=== PATIENT | female | born 1965 | race African-American/Black ===

== ENCOUNTER → 2017-02-22 | Outpatient (CLI) | payer OTHER ==
[~2017-02-22] MED LIST: ACCOLATE20 MG PO; CORT; HYDRALAZINE HCL25 MG PO; OMEPRAZOLE20 M2 PO; THEO-24200 MG PO
--- NOTE | ~2017-02-22 | MY29 ---
[facility] A Service of [facility] RADIOLOGY TEXT RESULTS PATIENT: ECTOR HUTSON LOCATION: [facility] : 61 UNIT #: [id number] AGE: [address]: SERA JARAMILLO NP SEX: F ORDER DR: [id number] [facility] [address] [place], [place] [address] [id number] O MR#: [id number] Acc #: [id number] NAME: ECTOR HUTSON : 1965 SEX: F STUDY DATE/TIME: 02/22/2017 14:00 UNIT: [facility] ROOM: STUDY DESCRIPTION: MY AUDRA SCREENING W/ CAD BILAT Attending Physician: Sera Jaramillo Aprn Ordering Physician: [facility] Primary Care Physician: Wicho Sosa M.D. MEDICAL IMAGING REPORT This report is preliminary unless electronic signature is present EXAM Digital screening mammogram 02/22/2017 HISTORY 51-year-old woman, positive family history, sister age 49. Previous left breast biopsy. Annual screening. COMPARISON STUDIES Mammograms date to 07/29/2010 with most recent 04/14/2015. FINDINGS Digital imaging of each breast was completed utilizing a two-view examination of each breast in craniocaudal and mediolateral-oblique projections. Review and interpretation of digital mammograms include a second review in conjunction with FDA-approved CAD device. There is a normal parenchymal presentation bilaterally consistent with the patient's age. There are no breast masses imaged and no parenchymal asymmetry is visualized. There are no suspicious microcalcifications and I see no focal architectural disturbance. IMPRESSION Negative screening digital mammogram. One-year followup recommended. Patients over the age of 40 are entered into a reminder system with target due date for the next mammogram. A result letter will also be sent to the patient. BIRADS: 1 Negative Dictated by... Samuel Corona M.D. [facility] A Service of [facility] RADIOLOGY TEXT RESULTS PATIENT: ECTOR HUTSON LOCATION: [facility] : 61 UNIT #: [id number] AGE: [address]: SERA JARAMILLO [employer] REFEREE SEX: F ORDER DR: THIS IS AN ELECTRONICALLY VERIFIED REPORT Samuel Corona M.D. at 02/22/2017 3:55 PM JBKimberley/pcl TD: 02/22/2017 15:25 JOB #: [id number] MEDICAL IMAGING REPORT Page 1 of 1 COPY
== END | disposition home or self-care (01) ==
LOC: CWCC 13:15
DX: Z12.31 Encounter for screening mammogram for malignant neoplasm of breast (principal); Z80.3 Family history of malignant neoplasm of breast
CPT/HCPCS: G0202